=== PATIENT | male | born 1990 | race Caucasian/White ===

== ENCOUNTER → 2019-09-23 07:56 | Outpatient (CLI) | payer BC, SELFPAY ==
--- NOTE | 2019-09-23 | CA_ITS ---
APPROVED REPORT Exam: Exercise Treadmill Technologist: Aminah Meyer Ht: 6 ft 1 in Wt: 220 lbs BSA: 2.24 m2 HR: 90 bpm BP: 118/76 mmHg Indications: Chest pain, Shortness of Breath Stress Test Details Test: Allen HR Resting HR: 88 bpm Max Heart Rate (APMHR): 190 bpm Max HR Achieved: 191 bpm Target HR (85% APMHR): 161 bpm % of APMHR: 100 Recovery HR: 109 bpm BP Resting BP: 118.0/76.0 mmHg Max BP: 164.0/89.0 mmHg Recovery BP: 148.0/87.0 mmHg ECG Clinical Exercise duration: 10:17 min Highest Stage Achieved: Exercise capacity: 12.8 METs Stress ECG Conclusion Resting ECG: Sinus rhythm Allen protocol completed. Patient exercised 10:17. Test stopped due to leg fatigue. Symptoms: Leg fatigue at peak exercise. No chest pain or shortness of breath. Arrhythmias/Ectopy: Occasional PVC ST-T Changes: Less than 1.[address] segment depression Conclusion: GXT only. Good exercise capacity. Appropriate blood pressure response. Normal treadmill stress test Test Summary REST . . . . . . . Sitting REST . . . . . . . Standing REST 08:04 0.0 0.0 88 . 118/ 76 . . Stage 1 01:00 10.0 1.7 117 . . . . Stage 1 02:00 10.0 1.7 122 . . . . Stage 1 03:00 10.0 1.7 122 . 124/ 78 . . Stage 2 01:00 12.0 2.5 135 . . . . Stage 2 02:00 12.0 2.5 140 . . . . Stage 2 03:00 12.0 2.5 142 . 134/ 80 . . Stage 3 01:00 14.0 3.4 163 . . . . Stage 3 02:00 14.0 3.4 174 . . . . Stage 3 03:00 14.0 3.4 180 . 146/ 80 . . Stage 4 01:00 16.0 4.2 190 . . . . Stage 4 01:17 16.0 4.2 190 . . . Stop exercise at 10:17 RECOVERY 01:00 0.0 0.0 161 . 156/ 78 . . RECOVERY 02:00 0.0 0.0 125 . 156/ 78 . . RECOVERY 03:00 0.0 0.0 118 . 164/ 89 . . RECOVERY 04:00 0.0 0.0 110 . 164/ 89 . . RECOVERY 05:00 0.0 0.0 106 . 148/ 87 . . RECOVERY 05:16 0.0 0.0 106 . 148/ 87 . . Electronically signed by : Edgardo Neves, 09/24/2019 09:58:21
--- NOTE | 2019-09-23 08:03 | CA_ITS ---
APPROVED REPORT EXAM: Comprehensive 2D, Doppler, and color-flow Echocardiogram Car Mechanic Helper: Lyndsay Leija RDCS Ht: 6 ft 1 in Wt: 216lbs BSA: 2.22 BP: 132/83 mmHg Indications: Chest Pain, Shortness of Breath 2D Dimensions LVOT 1.93 cm (M/F) 1.5-2.5 M-Mode Dimensions RVDd 2.61 cm (0.9-2.6) LVDd 5.30 cm (3.5-5.7) LVDs 4.30 cm (3.5-5.7) IVSd 0.76 cm (0.6-1.1) PWd 0.79 cm (0.6-1.1) EF (Teich) 38.60% FS 18.90% EDV (Teich) 135.30 mL ESV (Teich) 83.10 mL LV Diastology E/A Ratio 1.17 Mitral Valve MV A Velocity 57.00 (40-130 cm/s) Left Ventricle Left atrium is normal size, left ventricle is normal size, there is no concentric left ventricular hypertrophy, visually estimated ejection fraction 55% with no regional wall motion abnormality. Diastolic parameters are within normal range. Right Ventricle Right atrium right ventricular normal size and contractility. Aortic Valve Aortic valve is grossly normal, there is no aortic stenosis aortic insufficiency. Mitral Valve Mitral valve is grossly normal, there is no mitral stenosis, there is trace mitral regurgitation. Tricuspid Valve Tricuspid valve is grossly normal, there is trace tricuspid regurgitation. Pulmonic Valve Pulmonic valve is grossly normal. Great Vessels Aortic root is normal size. Pericardium No significant pericardial effusion noted. Conclusion 1. Normal left ventricular size, preserved left ventricular systolic function, visually estimated ejection fraction 55% with no regional wall motion abnormality. Diastolic parameters are within normal range. 2. Trace mitral and tricuspid regurgitation 3. No significant pericardial effusion noted. Electronically signed by : Edgardo Neves, 09/24/2019 13:13:00
== END ==
PROVIDERS: PCP Internal Medicine Adolescent Medicine; Visit Provider Nurse Practitioner Family
DX: R07.9 Chest pain, unspecified (principal); R06.02 Shortness of breath; R00.2 Palpitations
CPT/HCPCS: 93017; 93306

== ENCOUNTER → 2019-10-06 12:27 | Outpatient (CLI) | payer BC, SELFPAY ==
[2019-10-06 13:26] LABS: Basophils % 0.5 % (0.1-2.0); Eosinophils # 0.2 K/mm3 (0.0-0.4); Eosinophils % 2.7 % (0.1-12.0); Hematocrit 48.9 % (42.0-52.0); Hemoglobin 16.1 g/dL (14.1-18.0); Lymphocytes # 1.9 K/mm3 (0.7-4.5); Lymphocytes % 28.6 % (10-50); Mean Corpuscular HGB Conc 32.9 g/dL (31.8-35.4); Mean Corpuscular Hemoglobin 29.6 pg (27.0-31.2); Mean Corpuscular Volume 90.1 fl (80-94); Mean Platelet Volume 7.5 fl (7.4-10.4); Monocytes # 0.4 K/mm3 (0.1-1.0); Monocytes % 6.3 % (1.7-9.3); Neutrophils # 4.1 K/mm3 (1.8-7.8); Neutrophils % 61.9 % (37.0-80.0); Platelet Count 355 K/mm3 (142-424); Red Blood Count 5.43 M/mm3 (4.60-6.20); Red Cell Distribution Width 12.3 % (11.5-17.5); White Blood Count 6.6 K/mm3 (4.8-10.8)
[2019-10-06 14:34] LABS: Hemoglobin A1C 5.2 % (0.0-7.0)
[2019-10-06 14:35] LABS: Blood Urea Nitrogen 12 mg/dL (7-18); Calcium 9.3 mg/dL (8.5-10.1); Carbon Dioxide 28 mmol/L (21.0-32.0); Chloride 102 mmol/L (98-107); Creatinine,Serum 0.88 mg/dL (0.70-1.30); Estimated Glomerular Filt Rate 102 ml/min (>60); Free T4 (Free Thyroxine) 0.85 ng/dl (0.76-1.46); GFR (African American) 123 ML/MIN (>60); Glucose 94 mg/dL (74-106); Sodium 141 mmol/L (136-145)
== END ==
PROVIDERS: Visit Provider Nurse Practitioner Family
DX: I10 Essential (primary) hypertension (principal); R00.2 Palpitations
CPT/HCPCS: 36415; 80048; 83036; 84439; 84443; 85025

== ENCOUNTER → 2019-10-29 13:30 | Outpatient (CLI) | payer BC, SELFPAY | PROVIDERS: PCP Internal Medicine Adolescent Medicine; Visit Provider Nurse Practitioner Family | DX: G47.9 Sleep disorder, unspecified (principal); R06.83 Snoring; R00.2 Palpitations; R06.00 Dyspnea, unspecified | CPT/HCPCS: G0399 ==

== ENCOUNTER → 2019-11-11 11:36 | Outpatient (CLI) | payer BC, SELFPAY ==
[2019-11-11 12:03] LABS: Basophils # 0.1 K/mm3 (0-0.2); Basophils % 0.7 % (0.1-2.0); Eosinophils # 0.2 K/mm3 (0.0-0.4); Eosinophils % 3.5 % (0.1-12.0); Hematocrit 47.2 % (42.0-52.0); Hemoglobin 16.2 g/dL (14.1-18.0); Lymphocytes # 2.1 K/mm3 (0.7-4.5); Lymphocytes % 31.1 % (10-50); Mean Corpuscular HGB Conc 34.3 g/dL (31.8-35.4); Mean Corpuscular Volume 87.3 fl (80-94); Mean Platelet Volume 7.6 fl (7.4-10.4); Monocytes # 0.5 K/mm3 (0.1-1.0); Monocytes % 7.2 % (1.7-9.3); Neutrophils # 3.8 K/mm3 (1.8-7.8); Neutrophils % 57.5 % (37.0-80.0); Platelet Count 347 K/mm3 (142-424); Red Cell Distribution Width 12.1 % (11.5-17.5); White Blood Count 6.7 K/mm3 (4.8-10.8)
[2019-11-11 15:30] LABS: Alanine Aminotransferase 27 U/L (12-78); Albumin Level 4.2 gm/dL (3.4-5.0); Alkaline Phosphatase 62 U/L (46-116); Anion Gap 12.5 mEq/L (5-15); Aspartate Amino Transferase 10 U/L (15-37); Bilirubin,Direct 0.1 mg/dL (0.0-0.2); Bilirubin,Indirect 0.5 mg/dL (0.0-0.9); Bilirubin,Total 0.6 mg/dL (0.2-1.0); Blood Urea Nitrogen 12 mg/dL (7-18); Calcium 8.9 mg/dL (8.5-10.1); Carbon Dioxide 29 mmol/L (21.0-32.0); Chloride 103 mmol/L (98-107); Chol/HDL Ratio 4.6 (1-3.5); Cholesterol 165 mg/dL (140-200); Estimated Glomerular Filt Rate 114 ml/min (>60); GFR (African American) 137 ML/MIN (>60); Glucose 93 mg/dL (74-106); HDL Cholesterol 36 mg/dL (27-67); LDL Cholesterol 113 mg/dL (0-130); Potassium 4.5 mmoL/L (3.5-5.1); Sodium 140 mmol/L (136-145); Total Protein,Serum 7.1 gm/dL (6.4-8.2); Triglycerides 78 mg/dL (30-200); VLDL Cholesterol 16 mg/dL (0-40)
== END ==
PROVIDERS: Visit Provider Nurse Practitioner Family
DX: I10 Essential (primary) hypertension (principal); R00.2 Palpitations; R06.02 Shortness of breath; G47.9 Sleep disorder, unspecified; R06.83 Snoring
CPT/HCPCS: 36415; 80048; 80061; 80076; 85025

== ENCOUNTER → 2020-05-13 17:31 | Outpatient (CLI) | payer BC, SELFPAY ==
[2020-05-13 18:17] LABS: Coronavirus 19 IgG Antibody Negative (Negative); Coronavirus 19 IgM Antibody Negative (Negative)
== END ==
PROVIDERS: Visit Provider Urology
DX: Z01.818 Encounter for other preprocedural examination (principal)
CPT/HCPCS: 36415; 86328

== ENCOUNTER 2020-05-16 09:10 | Day surgery (SDC) | payer BC, SELFPAY ==
[2020-05-12 17:05] VITALS: BMI 28.3
[2020-05-16 09:45] VITALS: BP 144/81; PULSE 77; RESP 18; TEMP 36.6; O2SAT 97
--- NOTE | 2020-05-16 10:58 | HMH.ANESCL ---
[facility] Anesthesia Checklist - Patient Identification Patient Identification: Arm Band, Verbal (Name & ) - Structural Data Admitted From: Home Planned Operative Procedure/s: vasectomy Consent for Planned Operative Procedure(s) Verified: Yes Verified Documents: History and Physical - NPO Status Verified Time NPO: 00:00 - Chart Verification Results Verified: CBC, BMP - Additional verifications Patient : No Anesthesia Reactions: No Hx Blood Transfusions: No Blood Transfusion Reaction: No Cephalosporin Allergy: No Previous Colonoscopy: No - Cardiovascular Assessment Heart Sounds: S1 & S2 Pulse Strength: Baseline Pulse Rhythm: Regular Peripheral Edema: No - Airway Assessment C-Spine Mobility Assessed: Yes TMJ Mobility Assessed: Yes Dentition: Good Dentition - Neurological Assessment Level of Consciousness: Awake, Alert, Appropriate Hx Seizures: No Numbness or tingling in extremities: No - Anesthesia Plan Anesthesia Risk discussed: Yes Anesthesia Plan: Verified ASA Class: II Anesthesia Type: General [facility] History I have reviewed the patient's past medical history: Yes Medical History: Reports:: Palpitations Denies:: Cancer, Diabetes Mellitus Type 1, Diabetes Mellitus Type 2, Internal Pacemaker, MRSA, Seizures *Have you ever received a pneumonia vaccine?: No *Have you received a flu vaccine this season?: Yes Other Medical History: Denies: Blood Transfusion Reaction Anesthesia experience/problems:: none Other Surgeries: Yes: No Previous Surgery. No: Pacemaker Amputation: No Fractures: No - *Social History Smoking Status: Never smoker Tobacco Type: smokeless tobacco Alcohol Intake: never Substance Use Type: denies use *Occupational Status:: employed Housing: house Household Members: spouse *Travel in the last 8 weeks: None Family Hx:: Coronary Artery Disease, Hypertension
[2020-05-16 11:48] VITALS: BP 116/69; PULSE 77; RESP 12; TEMP 36.4; O2SAT 95
[2020-05-16 11:58] VITALS: BP 118/70; PULSE 86; RESP 16; O2SAT 96
[2020-05-16 12:08] VITALS: PULSE 83; RESP 16; O2SAT 98
[2020-05-16 12:18] VITALS: BP 144/93; PULSE 85; RESP 16; TEMP 36.4; O2SAT 98
--- NOTE | 2020-05-16 12:26 | P.OP_ITS ---
Date of procedure: 05/16/20 Pre-op Diagnosis:: Sterilization Post-op Diagnosis:: Same Procedure performed:: Bilateral vasectomy Surgeon:: Oral Méndez MD DRAFTER SEISMOGRAPH:: Apolinar Chiu Anesthesia: MAC Estimated blood loss (mL): 5 Clinical Note:: 29-year-old white male seen in the office for vasectomy consultation presents for the procedure today. His is present. Operative findings:: Patient with normal-sized testicles no evidence of testicular nodules. Procedure went well without complication. Operative note:: Patient taken to the operating room after informed consent was obtained. Placed on the operating table in the supine position and monitored anesthesia care administered. Is prepped and draped in the standard surgical fashion. Testicular exam is within normal limits. Left vas was brought up to the midline raphae and local anesthetic placed in and around the vas. Scalpel was then used to make 1/2 inch incision in the skin and a tenaculum was used to grasp the vasa that was brought up through the incision. The basal sheath was then incised and the surrounding connective tissue was dissected away from the vas proper. Vas was then clipped once on the distal side and twice on the proximal side. A 1 cm segment was excised and the ends of the vas were cauterized. Hemostasis was achieved of the surrounding connective tissue and the vas was dropped back into the left hemiscrotum. The identical procedure was performed on the patient's right side. The vas was brought up through the same incision and local anesthetic instilled. The basal sheath incised and the vas clipped and a 1 cm segment excised and the vasa lumen cauterized. Hemostasis achieved and the vas placed back in the right hemiscrotum. A 3-0 chromic was placed in a horizontal mattress fashion and compression dressing and jockstrap was placed onto the scrotum. Patient taught procedure well without complication. Discharged to recovery room with routine instructions and medications. Condition: stable Disposition: same day Specimens:: vas segments were not sent Complications:: None
== END 2020-05-16 12:21 | disposition home or self-care (01) ==
LOC: OR 09:12
PROVIDERS: PCP Internal Medicine Adolescent Medicine; Visit Provider Urology
PROC: (CPT 55250; principal; 2020-05-16 10:45)
DX: Z30.2 Encounter for sterilization (principal); Z79.899 Other long term (current) drug therapy; F17.290 Nicotine dependence, other tobacco product, uncomplicated; Z82.49 Family history of ischemic heart disease and other diseases of the circulatory system
CPT/HCPCS: 55250; J2405

== ENCOUNTER → 2020-09-13 15:25 | Outpatient (CLI) | payer BC, SELFPAY ==
[2020-09-14 09:54] LABS: Adenovirus,PCR Not Detected (NotDetected); Bordetella Pertussis Not Detected (NotDetected); Chlamydophila Pneumoniae, PCR Not Detected (NotDetected); Coronavirus 19, PCR Not Detected (NotDetected); Coronavirus 229E Not Detected (NotDetected); Coronavirus NL63 Not Detected (NotDetected); Coronavirus OC43 Not Detected (NotDetected); Coronovirus HKU1,PCR Not Detected (NotDetected); Human Metapneumovirus Not Detected (NotDetected); Influenza A, PCR Not Detected (NotDetected); Influenza AH1, 2009 Not Detected (NotDetected); Influenza AH1, PCR Not Detected (NotDetected); Influenza AH3,PCR Not Detected (NotDetected); Influenza B, PCR Not Detected (NotDetected); Mycoplasma Pneumoniae, PCR Not Detected (NotDetected); Parainfluenza 1, PCR Not Detected (NotDetected); Parainfluenza 2, PCR Not Detected (NotDetected); Parainfluenza 3, PCR Not Detected (NotDetected); Parainfluenza 4, PCR Not Detected (NotDetected); Respiratory Syncytial Virus Not Detected (NotDetected)
[2020-09-14 11:15] LABS: Rhinovirus/Enterovirus Detected (NotDetected)
== END ==
PROVIDERS: PCP Internal Medicine Adolescent Medicine; Visit Provider Nurse Practitioner Family
DX: Z03.818 Encounter for observation for suspected exposure to other biological agents ruled out (principal); B34.1 Enterovirus infection, unspecified
CPT/HCPCS: 87581; 87633; 87798; U0003; U0004

== ENCOUNTER 2022-05-11 13:44 | Emergency (ER) | payer BC, SELFPAY ==
[2022-05-11 14:00] VITALS: BP 125/74; PULSE 108; RESP 18; TEMP 36.7; O2SAT 98; BMI 26.9
--- NOTE | 2022-05-11 14:26 | HMH.EDUTC ---
[facility] [place] Disposition Clinical Impression: Viral syndrome Disposition: Home, Self-Care Condition on Discharge: Good Instructions: DI for COVID-19 (Suspected or Confirmed ), Preventing the Spread of Coronavirus Discharge Instructions Additional Instructions: *Monitor Temp, Over the counter Motrin or Tylenol as directed/as needed Tylenol every 4 hours and Motrin every 6 hours (as long as your family doctor has told you that you can take it) for fever or pain. and straight to ER if unable to lower temp less than 101.0 after medication given *Warm salt water gargles may help to soothe the throat *Throat Lozenges *Warm fluids like tea with honey may help to soothe the throat *Sleep elevated *Humidifier/Vaporizer Follow up IMMEDIATELY for new or worsening symptoms or no Noticeable improvement over the next 48-72 hours. 911 for difficulty breathing or swallowing You were tested for today for COVID19 your test result should be back in the next 24-48 hours, you may check your results on the [facility] My Health Portal Make sure to take your Vitamins Vit. C Vit D and Zinc if you can take them Referrals: Apolinar Dodge MD [Primary Care Provider] - As needed Forms: Work/School Release Time of Disposition: 14:29 Medical Decision Making - Walt Inquiry Pt receiving controlled substance: No Walt was queried for this patient: No Vital Signs: 05/11/22 14:00 Temperature 98.1 F Temperature Source Oral Pulse Rate [Right Brachial] 108 H Respiratory Rate 18 Blood Pressure [Right Arm] 125/74 Blood Pressure Mean [Right Arm] 91 Blood Pressure Source [Right Arm] Automatic Cuff Blood Pressure Position [Right Arm] Sitting 02 Sat by Pulse Oximetry 98 Oxygen Delivery Method Room Air Orders (Tests/Meds): ORDERS Category Date Time Status Covid-19 Nasal PCR ([facility]) Routine Lab 05/11/22 13:[address] [facility] [place] HPI - General Stated complaint: covid test Time Seen by Provider: 05/11/22 14:26 Mode of Arrival: Ambulatory Source of Information: Patient Limitations: No Limitations Description of Symptoms (Recalled from Triage Doc. by RN): PATIENT C/O COUGH, SOA, SORE THROAT, SINUS DRAINAGE, FEVER AND FATIGUE SINCE SATURDAY. HE REPORTS HAVING A POSITIVE AT HOME COVID TEST HEENT Symptoms (Recalled from RN notes): Yes Resp Symptoms (Recalled from RN notes): Yes Skin Symptoms (Recalled from RN notes): No MS Symptoms (Recalled from RN notes): No Functional Status (Recalled from RN notes): WNL - History of Present Illness Provider Complaint: Patient states that he has been having fever, chills, bodyaches, fatigue, cough and states that he gets tired more easy with walking States that he took an at home COVID test and it was positive and work required him to come in and get an official test - Related Data Previous Rx's Medication Instructions Recorded metoprolol succinate 25 mg 25 mg PO DAILY #90 tab 07/19/21 tablet,extended release 24 hr Allergies Allergy/AdvReac Type Severity Reaction Status Date / Time No Known Allergies Allergy Verified 07/19/21 08:53 - Worker's Comp Is this a Worker's Comp case?: No [facility] History - Hepatitis A Screen Attestation statement:: This patient has been screened for Hepatitis A risk factors. I have reviewed the patient's past medical history: Yes Medical History: Reports:: Palpitations Denies:: Cancer, Diabetes Mellitus Type 1, Diabetes Mellitus Type 2, Internal Pacemaker, MRSA, Seizures Other Medical History: Denies: Blood Transfusion Reaction Other Surgeries: Yes: No Previous Surgery. No: Pacemaker Amputation: No Fractures: No Comment: darlene in left leg - Social History Smoking Status: Never smoker Tobacco Type: smokeless tobacco Alcohol Intake: never Substance Use Type: denies use Occupational Status: employed Housing: house Household Members: spouse Family Hx:: Coronary Artery Disease, Hypertension Comment: Paternal Grandfather-CAD,AICD. Paternal Grandmother-CAD. Materna
[2022-05-11 14:35] VITALS: BP 125/74; PULSE 108; RESP 18; TEMP 36.7; O2SAT 98
== END 2022-05-11 14:38 | disposition home or self-care (01) ==
PROVIDERS: Emergency Provider Nurse Practitioner; PCP Internal Medicine Adolescent Medicine
DX: U07.1 COVID-19 (principal); J02.9 Acute pharyngitis, unspecified; R06.02 Shortness of breath; R00.2 Palpitations; R94.31 Abnormal electrocardiogram [ECG] [EKG]; M79.10 Myalgia, unspecified site
CPT/HCPCS: 99213; C9803; G0463; U0003; U0005

== ENCOUNTER → 2022-06-19 10:56 | Outpatient (CLI) | payer BC, SELFPAY ==
--- NOTE | 2022-06-19 11:00 | US_ITS ---
FINAL REPORT TECHNIQUE: Ultrasound images of the testicles were obtained bilaterally. Color Doppler images were obtained. CLINICAL HISTORY: LEFT TESTICULAT PAIN, TESTICULAR SWELLING,LEFT FINDINGS: The right testicle measures 4.0 x 3.2 x 2.4 cm. The left testicle measures 4.1 x 3.4 x 2.3 cm. Arterial flow is identified bilaterally. No intratesticular masses are identified. There are small hydroceles bilaterally. IMPRESSION: No evidence of testicular torsion or mass. Reviewed, Interpreted and Dictated by Merrill Goldman III, MD Transcribed by Letitia Huang Authenticated and [facility]
== END ==
LOC: RAD 10:58
PROVIDERS: PCP Internal Medicine Adolescent Medicine; Visit Provider Nurse Practitioner Family
DX: N50.812 Left testicular pain (principal); N50.89 Other specified disorders of the male genital organs
CPT/HCPCS: 76870

== ENCOUNTER 2022-10-10 08:05 | Emergency (ER) | payer BC, SELFPAY ==
[2022-10-10 08:35] LABS: Coronavirus 19, PCR Not Detected (NotDetected); Influenza A, PCR Not Detected (NotDetected); Influenza B, PCR Not Detected (NotDetected)
[2022-10-10 08:37] LABS: UTC Strep Screen (Rapid) Positive (Negative)
[2022-10-10 08:49] VITALS: BP 120/77; PULSE 106; RESP 17; TEMP 37.8; O2SAT 96; BMI 32.1
--- NOTE | 2022-10-10 08:57 | EXP.UTC ---
Discharge Plan Disposition Patient Disposition: Home, Self-Care Condition: Good Prescriptions Prescriptions: New amoxicillin 875 mg tablet 875 mg PO Q12H Qty: 20 0RF No Action metoprolol succinate 25 mg tablet extended release 24 hr 25 mg PO DAILY Qty: 90 3RF Referrals Follow up/Referrals: Apolinar Dodge MD [Primary Care Provider] - See instructions Activity Restrictions/Add. Instructions Additional Instructions/Restrictions: *Monitor Temp, Over the counter Motrin or Tylenol as directed/as needed Tylenol every 4 hours and Motrin every 6 hours (as long as your family doctor has told you that you can take it) for fever or pain. and straight to ER if unable to lower temp less than 101.0 after medication given *Warm salt water gargles may help to soothe the throat *Throat Lozenges? *Warm fluids like tea with honey may help to soothe the throat? *Sleep elevated *Humidifier/Vaporizer *If you did not take Penicillin shot or was unable to, start taking antibiotic immediately and make sure that you take it for the FULL length of time although you should start to feel better in 24-48 hours *change toothbrush and toothpaste 24-48 hours after starting to take antibiotics so you do not reinfect yourself Monitor Temp. Tylenol and/or Ibuprofen as needed. ER if fever is no less than 101 despite alternating Tylenol and Ibuprofen * Encourage fluids, water, Gatorade, powerade, pedialyte if /toddler/or child *Cold fluids, popsicles and ice cream may feel good on his throat Follow up IMMEDIATELY for new or worsening symptoms or no Noticeable improvement over the next 48-72 hours. 911 for difficulty breathing or swallowing You were tested for today for Flu with COVID19 your test result should be back in the next 24-48 hours, you may check your results on the [facility] Portal Clinical Impressions Clinical Impression: Strep throat Stand Alone Forms Stand Alone Forms: Work/School Release Instructions Patient Instructions: DI for Strep Throat, Strep Throat Discharge ED Provider: Varsha Lindsey [facility] [place] General Stated complaint: sore throat, GARCIA, ear pain, fever Mode of Arrival: Ambulatory Source of Information: Patient Limitations: No Limitations Time Seen by Provider: 10/10/22 08:57 Description of Symptoms (Recalled from Triage Doc. by RN): FEVER, SORE THORAT, BILATERAL EAR PAIN AND BODY ACHES HEENT Symptoms (Recalled from RN notes): Yes Resp Symptoms (Recalled from RN notes): No Skin Symptoms (Recalled from RN notes): No MS Symptoms (Recalled from RN notes): No Functional Status (Recalled from RN notes): WNL History of Present Illness Provider Complaint: Patient state that Saturday he woke up with sore throat and pain in his ears States that yesterday he started with fever, chills, body aches, and over all not feeling well States that today he was feeling worse so he came in Related Data Previous Rx's Medication Instructions Recorded metoprolol succinate 25 mg 25 mg PO DAILY blood pressure #90 09/04/22 tablet,extended release 24 hr tabs amoxicillin 875 mg tablet 875 mg PO Q12H #20 tabs 10/10/22 Allergies Allergy/AdvReac Type Severity Reaction Status Date / Time No Known Allergies Allergy Verified 09/12/22 07:56 Worker's Comp Is this a Worker's Comp case?: No [facility] Disclaimer: The information contained in this section may have been updated after the patient was seen, as this information can be updated by other users. Medical History Abnormal electrocardiography Social History Smoking Status: Never smoker alcohol intake: never substance use type: denies use current occupational status: employed Travel in the last 8 weeks: Inside the [place] household members: spouse housing: house current occupational exposures/hazards: No caffeine: No
[2022-10-10 09:10] VITALS: BP 120/77; PULSE 106; RESP 17; TEMP 37.8; O2SAT 96
== END 2022-10-10 09:10 | disposition home or self-care (01) ==
LOC: ER 08:07 → UTC 08:08
PROVIDERS: Emergency Provider Nurse Practitioner; PCP Internal Medicine Adolescent Medicine
DX: J02.0 Streptococcal pharyngitis (principal)
CPT/HCPCS: 99212; 87880; C9803; U0003; U0005

== ENCOUNTER → 2023-02-05 10:48 | Outpatient (CLI) | payer BC, SELFPAY ==
--- NOTE | 2023-02-05 10:55 | XR_ITS ---
FINAL REPORT CLINICAL HISTORY: Broken rib, right rib cage FINDINGS: 3 views of the right ribs were obtained. There are no rib fractures. There is no pleural fluid collection or pneumothorax. A single view of the chest demonstrates no acute cardiopulmonary process. IMPRESSION: Unremarkable right rib series. Reviewed, Interpreted and Dictated by Umer Gutierrez MD Transcribed by Demetrius White Authenticated and [facility]
== END ==
LOC: RAD 10:48
PROVIDERS: PCP Internal Medicine Adolescent Medicine; Visit Provider Specialist
DX: R07.81 Pleurodynia (principal)
CPT/HCPCS: 71101

== ENCOUNTER 2023-05-19 22:39 | Emergency (ER) | payer BC, SELFPAY ==
--- NOTE | 2023-05-19 22:40 | ECG_ITS ---
APPROVED REPORT Exam: Resting ECG HR:121 bpm ECG Measurements Heart Rate 121 AXES CO 147 P 31 QRSd 104 QRS 24 QT 316 T 11 QTc 388 Conclusion SINUS TACHYCARDIA WITH FREQUENT VENTRICULAR PREMATURE COMPLEXES NONSPECIFIC T-WAVE ABNORMALITY ABNORMAL RHYTHM ECG UNCONFIRMED REPORT Electronically signed by : Apolinar Dodge MD 05/20/2023 07:09:16
[2023-05-19 22:41] VITALS: BP 147/109; PULSE 126; RESP 16; TEMP 36.4; O2SAT 98; BMI 26.3
[2023-05-19 23:00] VITALS: BP 137/87; PULSE 123; RESP 18; O2SAT 100
--- NOTE | 2023-05-19 23:03 | XR_ITS ---
PROCEDURE INFORMATION: Exam: XR Chest Exam date and time: 05/19/23 11:23 PM Age: 32 years old Clinical indication: Other: Palpitations TECHNIQUE: Imaging protocol: Radiologic exam of the chest. Views: 1 view. COMPARISON: CR XR RIBS RT MIN 3V W CXR1V 02/05/23 10:58 AM FINDINGS: Lungs: Unremarkable. No consolidation. Pleural spaces: Unremarkable. No pleural effusion. No pneumothorax. Heart/Mediastinum: Unremarkable. No cardiomegaly. Bones/joints: Unremarkable. IMPRESSION: No acute findings.
--- NOTE | 2023-05-19 23:10 | PC.NURSE ---
Pt is complaining of IV site hurting. Charge nurse at bedside to assess site and start a new one.
[2023-05-19 23:15] LABS: Basophils % 0.5 % (0.1-2.0); Eosinophils # 0.2 K/mm3 (0.0-0.4); Eosinophils % 2.2 % (0.1-12.0); Hematocrit 49.4 % (42.0-52.0); Hemoglobin 16.2 g/dL (14.1-18.0); Lymphocytes # 2.9 K/mm3 (0.7-4.5); Lymphocytes % 32.5 % (10-50); Mean Corpuscular HGB Conc 32.9 g/dL (31.8-35.4); Mean Corpuscular Volume 88.4 fl (80-94); Mean Platelet Volume 7.8 fl (7.4-10.4); Monocytes # 0.6 K/mm3 (0.1-1.0); Monocytes % 6.8 % (1.7-9.3); Neutrophils # 5.1 K/mm3 (1.8-7.8); Platelet Count 345 K/mm3 (142-424); Red Blood Count 5.59 M/mm3 (4.60-6.20); Red Cell Distribution Width 12.5 % (11.5-17.5); White Blood Count 8.8 K/mm3 (4.8-10.8)
[2023-05-19 23:17] LABS: Alanine Aminotransferase 28 U/L (12-78); Albumin Level 5.4 g/dl (3.5-5.0); Albumin/Globulin Ratio 1.7 (1.1-1.8); Alkaline Phosphatase 54 U/L (38-126); Anion Gap 15.6 mEq/L (5-15); Aspartate Amino Transferase 35 U/L (17-59); Bilirubin,Total 0.5 mg/dl (0.2-1.3); Blood Urea Nitrogen 15 mg/dl (9-20); Calcium 9.7 mg/dl (8.4-10.2); Carbon Dioxide 28 mmol/L (22.0-30.0); Chloride 103 mmol/L (98-107); Creatinine Clearance Estimated 152 mL/min (50-200); Estimated Glomerular Filt Rate 97 ml/min (>60); GFR (African American) 117 ML/MIN (>60); Globulin 3.2 g/dL (1.3-3.2); Glucose 132 mg/dl (74-100); Potassium 3.6 mmoL/L (3.5-5.1); Sodium 143 mmol/L (136-145); Total Protein,Serum 8.6 g/dl (6.3-8.2)
[2023-05-19 23:18] VITALS: BP 137/85; PULSE 109; RESP 18; O2SAT 100
[2023-05-19 23:30] VITALS: BP 132/74; PULSE 84; RESP 18; O2SAT 98
[2023-05-19 23:30] LABS: Troponin I < 0.01 ng/ml (0.00-0.034)
--- NOTE | 2023-05-19 23:43 | HMH.EDCP ---
Discharge Plan Disposition Patient Disposition: Home, Self-Care Condition: Good Prescriptions Prescriptions: New hydroxyzine HCl 25 mg tablet 25 mg PO Q8H PRN (Reason: anxiety) Qty: 20 0RF No Action metoprolol succinate 25 mg tablet extended release 24 hr 25 mg PO DAILY Qty: 90 3RF Referrals Follow up/Referrals: Apolinar Dodge MD [Primary Care Provider] - See instructions Activity Restrictions/Add. Instructions Additional Instructions/Restrictions: You were evaluated in the emergency department today. Please follow-up with your primary care provider. nurses superintendent your prescription for hydroxyzine and take as needed for anxiety. Return to the emergency department for any new or worsening symptoms. Clinical Impressions Clinical Impression: Anxiety, Heart palpitations Instructions Patient Instructions: DI for Anxiety -- Adult, DI for Arrhythmias Discharge ED Provider: Kamilah Brewer Chest Pain HPI General Chief Complaint: Arrhythmia/Palpitations Stated Complaint: chest pain Time Seen by Provider: 05/19/23 22:59 Mode of Arrival: Family Vehicle Source of Information: Patient Limitations: No Limitations Description of Symptoms (Recalled from ER Triage Doc. by RN): 32 yo presents with left anterior chest wall discomfort, heart palpitations. denies n/v/d. difficulty taking a deep breath ; afebrile. denies cough. no radiation. PMH: hypertension and irregular heart rate states palpitations is making him feel dizzy History of Present Illness HPI narrative: This patient is a 32-year-old male with a history of hypertension, palpitations, obstructive sleep apnea, and sinus tachycardia presented to the emergency department for evaluation with concern for palpitations, lightheadedness, feelings of burning all over, and high blood pressure readings at home. Blood pressure readings at home in the 130s to 140s systolic. He states that he has had a lot of recent stress and anxiety, and he thinks that his symptoms may be related to this, however he wanted to make sure there is nothing going on with his heart given his persistent palpitations. He also notes that he has been having a lot of nightmares, and he is worried that this may mean that his CPAP is not functioning properly, as he does not typically have nightmares if he uses a CPAP. No other concerns noted, such as fevers, chills, abdominal pain, nausea, bloating, changes in bowel movements, or other issues. He reports compliance with his home metoprolol. Related Data Previous Rx's Medication Instructions Recorded metoprolol succinate 25 mg 25 mg PO DAILY blood pressure #90 09/04/22 tablet,extended release 24 hr tabs hydroxyzine HCl 25 mg tablet 25 mg PO Q8H PRN anxiety #20 tabs 05/20/23 Allergies Allergy/AdvReac Type Severity Reaction Status Date / Time No Known Allergies Allergy Verified 02/05/23 10:13 [facility] Disclaimer: The information contained in this section may have been updated after the patient was seen, as this information can be updated by other users. Medical History Abnormal electrocardiography Social History Smoking Status: Unknown if ever smoked alcohol intake: never substance use type: denies use current occupational status: employed Travel in the last 8 weeks: Inside the [place] household members: spouse housing: house current occupational exposures/hazards: No caffeine: No ROS Obtained: Yes All systems reviewed & no additional complaints except as documented 14 point review of systems obtained and negative except as mentioned in HPI. Physical Exam General General appearance: alert and anxious Comment: Very anxious appearing with pressured speech Head Head exam: atraumatic and normocephalic Eye Eye exam: Present normal appearance, PERRL and EOMI ENT ENT exam: Present normal exam and norm
--- NOTE | 2023-05-19 23:56 | PC.NURSE ---
Rounded on pt. No needs voiced at this time.
[2023-05-20] VITALS: BP 125/73; PULSE 96; RESP 16; O2SAT 95
[2023-05-20 00:08] LABS: D-Dimer 0.61 ug/mL (0.0-0.5)
--- NOTE | 2023-05-20 00:19 | PC.NURSE ---
Dr. Brewer at [facility]
[2023-05-20 00:30] VITALS: BP 126/78; PULSE 88; RESP 13; O2SAT 94
--- NOTE | 2023-05-20 00:37 | PC.NURSE ---
Pt urinal emptied. No other needs voiced. Call light within reach.
[2023-05-20 01:00] VITALS: BP 115/67; PULSE 80; RESP 17; O2SAT 94
[2023-05-20 01:30] VITALS: BP 107/63; PULSE 67; RESP 15; O2SAT 96
[2023-05-20 01:44] LABS: Troponin I < 0.01 ng/ml (0.00-0.034)
[2023-05-20 02:00] VITALS: BP 104/64; PULSE 86; RESP 18; O2SAT 97
[2023-05-20 02:20] VITALS: BP 104/64; PULSE 76; RESP 16; TEMP 36.6; O2SAT 96
== END 2023-05-20 02:24 | disposition home or self-care (01) ==
PROVIDERS: Emergency Provider Emergency Medicine; PCP Internal Medicine Adolescent Medicine
DX: R07.9 Chest pain, unspecified (principal); R00.0 Tachycardia, unspecified; I10 Essential (primary) hypertension; I49.3 Ventricular premature depolarization; G47.33 Obstructive sleep apnea (adult) (pediatric)
CPT/HCPCS: 71045; 80053; 84484; 85025; 85378; 93005; 96360; 99285

== ENCOUNTER 2023-12-08 18:13 | Emergency (ER) | payer BC, SELFPAY ==
[2023-12-08 18:20] VITALS: BP 138/82; PULSE 91; RESP 19; TEMP 36.8; O2SAT 98; BMI 26.3
[2023-12-08 18:27] LABS: Apearance,Urine Clear (Clear); Color,Urine Dark Yellow (Yellow)
[2023-12-08 18:28] LABS: Bilirubin,Urine Negative (Negative); Blood, Urine Negative (Negative); Glucose,Urine (UA) Negative (Negative); Ketones,Urine Negative (Negative); Protein,Urine Negative (Negative); Specific Gravity, Urine 1.025 (1.005-1.030); UTC Leukocyte Esterase,Urine Negative (Negative); UTC Nitrate,Urine Positive (Negative); Urobilinogen,Urine 0.2 EU/dl (0.2)
--- NOTE | 2023-12-08 18:43 | EXP.UTC ---
Discharge Plan Disposition Patient Disposition: Home, Self-Care Condition: Good Prescriptions Prescriptions: New ciprofloxacin HCl [Cipro] 500 mg tablet 500 mg PO Q12H Qty: 20 0RF phenazopyridine [Pyridium] 200 mg tablet 200 mg PO Q8H 2 Days Qty: 6 0RF No Action metoprolol succinate 25 mg tablet extended release 24 hr 25 mg PO DAILY Rx Instructions: Take 1 tablet by mouth once daily for blood pressure Referrals Follow up/Referrals: Apolinar Dodge MD [Primary Care Provider] - See instructions Activity Restrictions/Add. Instructions Additional Instructions/Restrictions: *Increase fluids. Water not Soda or Tea *Start antibiotic immediately and be sure to take as ordered for the FULL length of time although you should start to see improvement over the next 48 hours *Pyridium as needed Remember this medication will turn your urine . This is normal but it will stain what ever it gets on *You should not use Pyridium for more than 48 hours. If so , follow up with your primary physician to review urine culture and ensure that antibiotic is adequate for infection *Be SURE to follow up anytime for new or worsening symptoms with your family doctor. AND in 48 hours for urine culture results with your family doctor, if you do not have a doctor then you may call back to the [facility] for urine culture results and further treatment. We do recommend that you choose and establish care with a Primary Care Physician. ?AND follow up with them ?in 10-14 days to repeat UA to ensure infection is resolved and blood no longer present *Be sure to let your PCP know that we sent urine cultures from the [facility] so they can follow up to ensure that you area the on the correct antibiotic Call your doctor office and make appointment for 48 hours (2 days from today) ?to follow up and get the results of your urine culture and further treatment Clinical Impressions Clinical Impression: UTI (urinary tract infection) Qualifiers: Urinary tract infection type: site unspecified Hematuria presence: without hematuria Qualified Code(s): N39.0 - Urinary tract infection, site not specified Instructions Patient Instructions: DI for Urinary Tract Infection (UTI), Urinary Tract Infection Discharge ED Provider: Varsha Lindsey [facility] – [place], [place] HPI General Stated complaint: pain in back and painful urination Mode of Arrival: Ambulatory Source of Information: Patient Limitations: No Limitations Time Seen by Provider: 12/08/23 18:43 Description of Symptoms (Recalled from Triage Doc. by RN): PATIENT C/O FREQUENT URINATION AND LOWER BACK PAIN X 2 DAYS HEENT Symptoms (Recalled from RN notes): No Resp Symptoms (Recalled from RN notes): No Skin Symptoms (Recalled from RN notes): No MS Symptoms (Recalled from RN notes): No Functional Status (Recalled from RN notes): WNL History of Present Illness Provider Complaint: Patient states that for the last couple of days he has been having achy like pain in his lower back and having burning with urination and frequent urination States that he was worried that he may have a UTI so he came in to get checked Denies fever or abdominal pain Related Data Home Medications Medication Instructions Recorded Confirmed metoprolol succinate 25 mg 25 mg PO DAILY 12/08/23 12/08/23 tablet,extended release 24 hr Previous Rx's Medication Instructions Recorded ciprofloxacin HCl 500 mg tablet 500 mg PO Q12H #20 tabs 12/08/23 (Cipro) phenazopyridine 200 mg tablet 200 mg PO Q8H pain 2 days #6 tabs 12/08/23 (Pyridium) Allergies Allergy/AdvReac Type Severity Reaction Status Date / Time No Known Allergies Allergy Verified 02/05/23 10:13 Worker's Comp Is this a Worker's Comp case?: No [facility] Disclaimer: The information contained in this section may have been updated after the patient was seen, as this information can be updated by other users. Medical History Abnormal electrocardiography Social History Smoking Status: Unknown if ever smoked alcohol intake: never substance use type: denies use current occupational status: employed Travel in the last 8 weeks: Inside the [place] household members: spouse housing: house current occupational exposures/hazards: No caffeine: No ROS Obtained: Yes All systems reviewed & no additional complaints except as documented and Yes Systems reviewed as appropriate & no additional complaints except as documented Constitutional Constitutional: Reports system reviewed and no additional complaints, except as documented and Reports as per HPI ENT Ears, Nose, Mouth, and Throat: Reports system reviewed and no additional complaints, except as documented and Reports as per HPI Cardiovascular Cardiovascular: Reports system reviewed and no additional complaints, except as documented and Reports as per HPI Respiratory Respiratory: Reports system reviewed and no additional complaints, except as documented and Reports as per HPI Gastrointestinal Gastrointestingal: Reports system reviewed and no additional complaints, except as documented and as per HPI; Denies abdominal pain Genitourinary Male Genitourinary: Reports system reviewed and no additional complaints, except as documented, Reports as per HPI, Reports flank pain, Reports urinary frequency and Reports urinary urgency Comments: denies hx of Kidney stone Musculoskeletal Musculoskeletal: Reports system reviewed and no additional complaints, except as documented and Denies as per HPI Integumentary/Breasts Skin/Breast: Reports system reviewed and no additional complaints, except as documented and Reports as per HPI Physical Exam General General appearance: alert and in no apparent distress ENT ENT exam: Present mucous membranes moist Respiratory Respiratory exam: Present normal lung sounds bilaterally; Absent respiratory distress or wheezes Cardiovascular Cardiovascular exam: Present regular rate, normal rhythm and normal heart sounds Abdominal Exam Abdominal exam: Present soft and normal bowel sounds; Absent distention or tenderness Neurological Exam Neurological exam: Present alert, oriented X3 and normal gait Medical Decision Making Walt Inquiry Pt receiving controlled substance: No Walt was queried for this patient: No Vital Signs: 12/08/23 18:20 Temperature 98.3 F Temperature Source Oral Pulse Rate [Left Brachial] 91 H Respiratory Rate 19 Blood Pressure [Left Arm] 138/82 Blood Pressure Mean [Left Arm] 100 Blood Pressure Source [Left Arm] Automatic Cuff Blood Pressure Position [Left Arm] Sitting 02 Sat by Pulse Oximetry 98 Oxygen Delivery Method Room Air Lab Data Lab results reviewed: Yes I reviewed the patient's lab results. Lab Results 12/08/23 18:22: Urine Color Dark yellow, Urine Appearance Clear, Urine pH 6.0, Ur Specific [place] 1.025, Urine Protein Negative, Urine Glucose (UA) Negative, Urine Ketones Negative, Urine Blood Negative, Urine Nitrate Positive A, Urine Bilirubin Negative, Urine Urobilinogen 0.2, Ur Leukocyte Esterase Negative Medical Decision Narrative: Medication discussed with pharmacy
[2023-12-08 19:10] VITALS: BP 138/82; PULSE 91; RESP 19; TEMP 36.8; O2SAT 98
[2023-12-08] MEDS: PHENAZOPYRIDINE 200MG TABLET 200 MG PO (19:14)
[2023-12-08] MEDS: levoFLOXacin 500MG TAB 500 MG PO (19:15)
== END 2023-12-08 19:16 | disposition home or self-care (01) ==
PROVIDERS: Emergency Provider Nurse Practitioner; PCP Internal Medicine Adolescent Medicine
DX: N39.0 Urinary tract infection, site not specified (principal); M54.59 Other low back pain
CPT/HCPCS: 81003; 87086; 99212; 99214; G0463

== ENCOUNTER 2024-05-21 03:41 | Emergency (ER) | payer BC, SELFPAY ==
[2024-05-21 03:43] VITALS: BP 141/95; PULSE 113; RESP 18; TEMP 36.5; O2SAT 99; BMI 26.4
--- NOTE | 2024-05-21 03:47 | ECG_ITS ---
APPROVED REPORT Exam: Resting ECG HR:112 bpm ECG Measurements Heart Rate 112 AXES VT 168 P 76 QRSd 100 QRS 66 QT 329 T 68 QTc 395 Conclusion SINUS TACHYCARDIA NONSPECIFIC T-WAVE ABNORMALITY ABNORMAL RHYTHM ECG Electronically signed by : ISABEL MORTENSEN, 05/21/2024 04:33:42
[2024-05-21 03:50] VITALS: BP 141/95; PULSE 112; O2SAT 100
--- NOTE | 2024-05-21 03:57 | PC.NURSE ---
Dr. Brewer at bedside
[2024-05-21 04:00] VITALS: BP 136/89; PULSE 98; RESP 12
--- NOTE | 2024-05-21 04:01 | XR_ITS ---
PROCEDURE INFORMATION: Exam: XR Chest Exam date and time: 05/21/2024 4:01 AM Age: 33 years old Clinical indication: Pain; Chest pressure; Additional info: Palpitations, SOA TECHNIQUE: Imaging protocol: Radiologic exam of the chest. Views: 2 views. COMPARISON: CR XR CHEST PORTABLE 05/19/2023 11:23 PM FINDINGS: Lungs: Unremarkable. No consolidation. Pleural spaces: Unremarkable. No pleural effusion. No pneumothorax. Heart/Mediastinum: Unremarkable. No cardiomegaly. Bones/joints: Unremarkable. IMPRESSION: No acute findings.
--- NOTE | 2024-05-21 04:01 | HMH.EDGENADL ---
Discharge Plan Disposition Patient Disposition: Home, Self-Care Condition: Good Prescriptions Prescriptions: New hydroxyzine HCl 25 mg tablet 25 mg PO Q8H PRN (Reason: panic attack(s)) Qty: 12 0RF No Action doxycycline hyclate 100 mg capsule 100 mg PO BID Patient Comments: TAKE 1 CAPSULE BY MOUTH TWICE DAILY FOR 10 DAYS metoprolol succinate 25 mg tablet extended release 24 hr 25 mg PO DAILY Rx Instructions: Take 1 tablet by mouth once daily for blood pressure Referrals Follow up/Referrals: Apolinar Dodge MD [Primary Care Provider] - See instructions Activity Restrictions/Add. Instructions Additional Instructions/Restrictions: You were evaluated in the emergency department today. Please follow-up closely with your primary care provider to determine whether or not you should be restarted on your home medication, metoprolol. Follow-up closely with them over the next 48 hours. Return to the emergency department for new or worsening symptoms. Take hydroxyzine as needed for panic attacks. Clinical Impressions Clinical Impression: Heart palpitations, Anxiety, Sinus tachycardia Instructions Patient Instructions: Anxiety and Panic Attacks (Alternative Therapy), DI for Palpitations Discharge ED Provider: Kamilah Brewer General Adult HPI General Chief complaint: Anxiety Stated complaint: High heart Rate,feels bad Time Seen by Provider: 05/21/24 03:55 Mode of Arrival: Ambulatory Source of Information: Patient Limitations: No Limitations Description of Symptoms (Recalled from ER Triage Doc. by RN): Pt presents to ED via private vehicle for anxiety/heart palpatations. Pt states this has happened before. Pt states he was asleep and woke up to his heart racing . He states it's probably anxiety but he just couldn't get it together so he came in. Pt is A&O*4 and family is bedside. History of Present Illness HPI narrative: This patient is a 33-year-old male with a history of hypertension, PAVAN, and previous evaluations for palpitations/sinus tachycardia as well as anxiety presenting to the emergency department for evaluation with concern for anxiety and palpitations. Patient reports that he went to sleep in his usual state of health last night and was doing fine. He wore his CPAP, which is new, and he has not been having issues with it. He notes that he woke up to his heart racing. He states that he thought maybe it was just anxiety, but he cannot get his symptoms resolved. He states that he feels bad overall and feels like he is burning all over. On review of systems, he notes that he is injured his right ribs and states that he had some pleuritic chest pain on the right side as well as nausea. 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 He cannot identify any other recent other symptoms, such as fever, sore throat, cough, congestion, calf pain or swelling, abdominal pain, vomiting, or other concerns. Of note, he was previously on metoprolol reportedly had for high blood pressure, but once he got a new CPAP he stopped taking his medication 2 months ago, as it was thought that maybe his high blood pressure could be result of poor sleep. Related Data Home Medications Medication Instructions Recorded Confirmed metoprolol succinate 25 mg 25 mg PO DAILY 12/08/23 12/08/23 tablet,extended release 24 hr doxycycline hyclate 100 mg capsule 100 mg PO BID 02/06/24 02/06/24 Previous Rx's Medication Instructions Recorded hydroxyzine HCl 25 mg tablet 25 mg PO Q8H PRN panic attack(s) 05/21/24 #12 tabs Allergies Allergy/AdvReac Type Severity Reaction Status Date / Time No Known Allergies Allergy Verified 02/06/24 08:52 [facility] Disclaimer: The information contained in this section may have been updated after the patient was seen, as this information can be updated by other users. Medical History Abnormal electrocardiography Social History Smoking Status: Former smoker tobacco type: smokeless tobacco alcohol intake: never substance use type: denies use current occupational status: employed Travel in the last 8 weeks: [place] the [place] household members: spouse housing: house current occupational exposures/hazards: No caffeine: No ROS Obtained: Yes All systems reviewed & no additional complaints except as documented Physical Exam General General appearance: alert, in no apparent distress and anxious Head Head exam: atraumatic and normocephalic Eye Eye exam: Present normal appearance, PERRL and EOMI ENT ENT exam: Present normal exam, normal oropharynx, mucous membranes moist and normal external ear exam Neck Neck exam: Present normal inspection, full ROM and trachea midline; Absent tenderness Chest Chest inspection: Present normal inspection and symmetric chest wall rise; Absent tenderness Respiratory Respiratory exam: Present normal lung sounds bilaterally; Absent respiratory distress, wheezes, stridor or accessory muscle use Cardiovascular Cardiovascular exam: Present normal rhythm and tachycardia Abdominal Exam Abdominal exam: Present soft; Absent distention, tenderness or guarding Extremities Exam Extremities exam: Present normal inspection, full ROM and normal capillary refill; Absent tenderness or edema Back Exam Back exam: Present normal inspection and full ROM; Absent tenderness Neurological Exam Neurological exam: Present alert, oriented X3, CN II-XII intact and normal gait; Absent motor sensory deficit Psychiatric Psychiatric exam: Present anxious Skin Skin exam: Present warm and dry Medical Decision Making Medical Records Medical records reviewed: Yes I reviewed the patient's medical records. Walt Inquiry Pt receiving controlled substance: No Vital Signs: 05/21/24 03:43 05/21/24 03:50 05/21/24 04:00 Temperature 97.7 F Temperature Source Oral Pulse Rate 112 H 98 H Pulse Rate [Left] 113 H Respiratory Rate 18 12 Blood Pressure 141/95 H 136/89 Blood Pressure [Right Arm] 141/95 H Blood Pressure Mean [Right Arm] 110 02 Sat by Pulse Oximetry 99 100 Oxygen Delivery Method Room Air 05/21/24 04:18 05/21/24 04:30 Temperature Temperature Source Pulse Rate 97 H 86 Pulse Rate [Left] Respiratory Rate Blood Pressure 129/92 H 136/83 Blood Pressure [Right Arm] Blood Pressure Mean [Right Arm] 02 Sat by Pulse Oximetry 99 100 Oxygen Delivery Method Room Air Room Air Lab Data Lab results reviewed: Yes I reviewed the patient's lab results. Lab Results 05/21/24 03:50: WBC 7.3, RBC 4.98, Hgb 15.5, Hct 45.5, MCV 91.4, MCH 31.2, MCHC 34.1, RDW 12.9, Plt Count 264, MPV 7.5, Neut % (Auto) 51.3, Lymph % (Auto) 37.6, [place] % (Auto) 6.3, Eos % (Auto) 4.0, Baso % (Auto) 0.9, Neut # (Auto) 3.8, Lymph # (Auto) 2.8, [place] # (Auto) 0.5, Eos # (Auto) 0.3, Baso # (Auto) 0.1, D-Dimer 0.43, Sodium 142, Potassium 3.5, Chloride 105, Carbon Dioxide 30, Anion Gap 10.5, BUN 23 H, Creatinine 1.00, Estimated Creat Clear 132, Estimated GFR 85, Est GFR ( Amer) 103, Glucose 147 H, Calcium 9.3, Magnesium 2.0, Total Bilirubin 0.4, AST 30, ALT 20, Alkaline Phosphatase 48, Troponin I < 0.01, Total Protein 7.4, Albumin 4.5, Globulin 2.9, Albumin/Globulin Ratio 1.6, TSH 3.44, Thyroxine (T4) 8.7 05/21/24 03:50 05/21/24 03:50 Orders (Tests/Meds): ED MEDICATIONS Discontinued Medications Generic Name Dose Route Start Last Admin Trade Name Gavinq PRN Reason Stop Dose Admin Acetaminophen 1,000 mg 05/21/24 04:59 05/21/24 05:09 Acetaminophen 500mg Tab PO 05/21/24 05:00 1,000 mg ONCE ONE Administration Ketorolac Tromethamine 15 mg 05/21/24 04:59 05/21/24 05:08 Ketorolac 30mg/Ml Vial IV 05/21/24 05:00 15 mg ONCE ONE Administration Lidocaine 1 each 05/21/24 04:59 05/21/24 05:09 Lidocaine 5% Transdermal Patch TP 05/21/24 05:00 1 each ONCE ONE Administration ORDERS Category Date Time Status CXR 2 view (NOT portable) [XR chest 2V] Stat Exams 05/21/24 04:01 Taken CBC w/Auto Diff [Complete Blood Count Auto Diff] Stat Lab 05/21/24 03:50 Completed CMP [Comprehensive Metabolic Panel] Stat Lab 05/21/24 03:50 Completed D-Dimer Stat Lab 05/21/24 03:50 Completed MAG [Magnesium] Stat Lab 05/21/24 03:50 Completed T4 (Thyroxine) Stat Lab 05/21/24 03:50 Completed TSH [Thyroid Stimulating Hormone] Stat Lab 05/21/24 03:50 Completed Trop I [Troponin I] Stat Lab 05/21/24 03:50 Completed Troponin I Q3H Lab 05/21/24 07:00 Ordered Troponin I Q3H Lab 05/21/24 10:00 Ordered ECG Data Tracing #1: I reviewed this ECG and interpreted as documented below: Sinus tachycardia with a ventricular rate of [address] changes concerning for ischemia. Normal axis and intervals. ECG initial impression date: 05/21/24 ECG initial impression time: 03:55 HEART Score History (anamnesis): Slightly suspicious ECG: Normal Age: <45 years Risk factors: 1-2 risk factors Troponin: </= normal limit HEART Score: 1 Medical Decision Narrative: In summary, this patient is a 33-year-old male presenting to the Emergency Department for evaluation of palpitations and anxiety. On review of systems, he is also had nausea and right-sided pleuritic chest pain. Differential diagnoses considered include but are not limited to anxiety, panic attack, PE, ACS, dysrhythmia, hyperthyroidism, electrolyte derangements, viral syndrome. Ruling out the most morbid conditions drove assessment. It should be noted patient's history includes PAVAN and hypertension which may or may not be at goal therapy. This complicates all aspects of care by increasing patient's risk for morbidity. I reviewed patient's past medical records and noted previous evaluation for similar issues approximately 1 year ago with reassuring workup at that time. On exam, the patient is anxious appearing but is otherwise lying in bed in no acute distress. He is mildly tachycardic, but otherwise vitals are reassuring. Workup included CBC, CMP, magnesium, troponin, TSH, T4, D-dimer, chest x-ray, and EKG. For his musculoskeletal chest wall pain, he was given IV Toradol, oral Tylenol, and a topical Lidoderm patch. I independently interpreted x-ray prior to the radiologist read and noted obvious displaced rib fracture, no pneumothorax, and no focal consolidation. Please see their read for final interpretation. Labs were obtained that demonstrated negative D-dimer, normal CBC, normal CMP, negative troponin, normal thyroid studies. On reassessment, patient is resting comfortably and states that he is feeling better. He notes that he has calmed down a lot. Vitals are normal on cardiac telemetry with no tachycardia, hypoxia, or other concerns. Blood pressure is normal. At this time, patient is low risk for ACS with a heart score of 1 and no true chest pain. Given this as well as reassuring workup and exam, I feel that he is appropriate for discharge home with diagnosis of likely panic attack. He was given instructions for close follow-up with his primary care provider as well as prescription for hydroxyzine to take as needed for panic. Strict return precautions were given and he was discharged after all questions were answered. Critical Care Critical Care Time Critical Care Time: No
[2024-05-21 04:18] VITALS: BP 129/92; PULSE 97; O2SAT 99
[2024-05-21 04:30] VITALS: BP 136/83; PULSE 86; O2SAT 100
[2024-05-21 04:31] LABS: Basophils # 0.1 K/mm3 (0-0.2); Basophils % 0.9 % (0.1-2.0); Eosinophils # 0.3 K/mm3 (0.0-0.4); Hematocrit 45.5 % (42.0-52.0); Hemoglobin 15.5 g/dL (14.1-18.0); Lymphocytes # 2.8 K/mm3 (0.7-4.5); Lymphocytes % 37.6 % (10-50); Mean Corpuscular HGB Conc 34.1 g/dL (31.8-35.4); Mean Corpuscular Hemoglobin 31.2 pg (27.0-31.2); Mean Corpuscular Volume 91.4 fl (80-94); Mean Platelet Volume 7.5 fl (7.4-10.4); Monocytes # 0.5 K/mm3 (0.1-1.0); Monocytes % 6.3 % (1.7-9.3); Neutrophils # 3.8 K/mm3 (1.8-7.8); Neutrophils % 51.3 % (37.0-80.0); Platelet Count 264 K/mm3 (142-424); Red Blood Count 4.98 M/mm3 (4.60-6.20); Red Cell Distribution Width 12.9 % (11.5-17.5); White Blood Count 7.3 K/mm3 (4.8-10.8)
[2024-05-21 04:33] LABS: Alanine Aminotransferase 20 U/L (12-78); Albumin Level 4.5 g/dl (3.5-5.0); Albumin/Globulin Ratio 1.6 (1.1-1.8); Alkaline Phosphatase 48 U/L (38-126); Anion Gap 10.5 mEq/L (5-15); Aspartate Amino Transferase 30 U/L (17-59); Bilirubin,Total 0.4 mg/dl (0.2-1.3); Blood Urea Nitrogen 23 mg/dl (9-20); Calcium 9.3 mg/dl (8.4-10.2); Carbon Dioxide 30 mmol/L (22.0-30.0); Chloride 105 mmol/L (98-107); Creatinine Clearance Estimated 132 mL/min (50-200); Estimated Glomerular Filt Rate 85 ml/min (>60); GFR (African American) 103 ML/MIN (>60); Globulin 2.9 g/dL (1.3-3.2); Glucose 147 mg/dl (74-100); Potassium 3.5 mmoL/L (3.5-5.1); Sodium 142 mmol/L (136-145); Total Protein,Serum 7.4 g/dl (6.3-8.2)
[2024-05-21 04:37] LABS: D-Dimer 0.43 ug/mL (0.0-0.5)
[2024-05-21 04:51] LABS: T4 (Thyroxine) 8.7 ug/dl (5.53-11.0)
--- NOTE | 2024-05-21 04:55 | PC.NURSE ---
Dr. Brewer at bedside
[2024-05-21 05:04] LABS: Thyroid Stimulating Hormone 3.44 uIU/mL (0.465-4.68)
[2024-05-21] MEDS: KETOROLAC 30MG/ML VIAL 15 MG IV (05:08)
[2024-05-21] MEDS: ACETAMINOPHEN 500MG TAB 1000 MG PO (05:09)
[2024-05-21] MEDS: LIDOCAINE 5% TRANSDERMAL PATCH 1 EACH TP (05:09)
[2024-05-21 05:11] LABS: Troponin I < 0.01 ng/ml (0.00-0.034)
[2024-05-21 05:16] VITALS: BP 97/53; PULSE 79; RESP 13; TEMP 36.6; O2SAT 98
== END 2024-05-21 05:22 | disposition home or self-care (01) ==
PROVIDERS: Emergency Provider Emergency Medicine; PCP Internal Medicine Adolescent Medicine
DX: R00.2 Palpitations (principal); F41.9 Anxiety disorder, unspecified; R00.0 Tachycardia, unspecified; I10 Essential (primary) hypertension; G47.33 Obstructive sleep apnea (adult) (pediatric)
CPT/HCPCS: 71046; 80050; 80053; 83735; 84436; 84443; 84484; 85025; 85378; 93005; 96374; 99284; J1885

== ENCOUNTER 2024-10-23 15:01 | Outpatient (CLI) | payer BC, SELFPAY ==
[2024-10-23 18:08] LABS: Coronavirus 19, PCR Not Detected (NotDetected); Influenza A, PCR Not Detected (NotDetected); Influenza B, PCR Not Detected (NotDetected)
== END 2024-10-23 23:59 | disposition home or self-care (01) ==
LOC: LAB.DROPOF 10-26 11:42
PROVIDERS: PCP Family Medicine; Visit Provider Family Medicine
DX: J32.9 Chronic sinusitis, unspecified (principal); Z87.891 Personal history of nicotine dependence
CPT/HCPCS: 87636

== ENCOUNTER 2024-12-15 10:46 | Outpatient (CLI) | payer BC, SELFPAY ==
[2024-12-15 12:28] LABS: Basophils % 0.6 % (0.1-2.0); Eosinophils # 0.2 K/mm3 (0.0-0.4); Eosinophils % 2.5 % (0.1-12.0); Hematocrit 45.1 % (42.0-52.0); Hemoglobin 15.5 g/dL (14.1-18.0); Lymphocytes # 1.9 K/mm3 (0.7-4.5); Lymphocytes % 26.8 % (10-50); Mean Corpuscular HGB Conc 34.4 g/dL (31.8-35.4); Mean Corpuscular Volume 87.4 fl (80-94); Mean Platelet Volume 9.3 fl (7.4-10.4); Monocytes # 0.5 K/mm3 (0.1-1.0); Monocytes % 7.4 % (1.7-9.3); Neutrophils # 4.5 K/mm3 (1.8-7.8); Neutrophils % 62.1 % (37.0-80.0); Platelet Count 279 K/mm3 (142-424); Red Blood Count 5.16 M/mm3 (4.60-6.20); Red Cell Distribution Width 11.8 % (11.5-17.5); White Blood Count 7.2 K/mm3 (4.8-10.8)
[2024-12-15 12:35] LABS: Albumin Level 5.2 g/dl (3.5-5.0); Chloride 101 mmol/L (98-107); Sodium 139 mmol/L (136-145)
[2024-12-15 12:36] LABS: Potassium 4.3 mmoL/L (3.5-5.1)
[2024-12-15 12:38] LABS: Alanine Aminotransferase 26 U/L (12-78); Alkaline Phosphatase 54 U/L (38-126); Anion Gap 12.3 mEq/L (5-15); Aspartate Amino Transferase 30 U/L (17-59); Bilirubin,Indirect 0.7 mg/dL (0.0-0.9); Bilirubin,Total 0.7 mg/dl (0.2-1.3); Bilirubin,Unconjugated 0.7 mg/dL (0.0-1.1); Blood Urea Nitrogen 13 mg/dl (9-20); Carbon Dioxide 30 mmol/L (22.0-30.0); Cholesterol 192 mg/dl (140-200); Estimated Glomerular Filt Rate 128 ml/min (>60); GFR (African American) 154 ML/MIN (>60); Total Protein,Serum 8.1 g/dl (6.3-8.2); Triglycerides 82 mg/dl (30-150); VLDL Cholesterol 16 mg/dL (0-40)
[2024-12-15 12:39] LABS: Calcium 9.2 mg/dl (8.4-10.2); Chol/HDL Ratio 4.8 (1-3.5); Glucose 98 mg/dl (74-100); HDL Cholesterol 40 mg/dl (40-60)
[2024-12-15 12:51] LABS: Direct LDL Cholesterol 114.42 mg/dL (100-129)
[2024-12-15 13:09] LABS: Thyroid Stimulating Hormone 0.84 uIU/mL (0.465-4.68)
[2024-12-15 14:32] LABS: Free T4 (Free Thyroxine) 0.92 ng/dl (0.78-2.19)
== END 2024-12-15 23:59 | disposition home or self-care (01) ==
LOC: LAB 10:47
PROVIDERS: PCP Internal Medicine Adolescent Medicine; Visit Provider Nurse Practitioner Family
DX: R42 Dizziness and giddiness (principal); R07.89 Other chest pain; R00.2 Palpitations; I10 Essential (primary) hypertension
CPT/HCPCS: 36415; 80048; 80061; 80076; 83735; 84439; 84443; 85025; 93270

== ENCOUNTER 2024-12-22 14:14 | Outpatient (CLI) | payer BC, SELFPAY ==
--- NOTE | 2024-12-22 14:17 | CA_ITS ---
APPROVED REPORT EXAM: Comprehensive 2D, Doppler, and color-flow Echocardiogram Skein Winding Operator: Joaquina Rosa RVT Ht: 6 ft 1 in Wt: 198lbs BSA: 2.14 BP: 122/69 mmHg Indications: CHEST PAIN,PALPITATIONS,FATIGUE 2D Dimensions LA Volume 34.80 mL LA Volume Index 16.26 mL/m2 (M/F) 16-34 M-Mode Dimensions RVDd 2.14 cm (0.9-2.6) LA Diam 3.36 cm (1.9-4.0) LVDd 4.64 cm (3.5-5.7) LVDs 3.00 cm (3.5-5.7) IVSd 0.80 cm (0.6-1.1) PWd 0.52 cm (0.6-1.1) EF (Teich) 64.80% FS 35.30% EDV (Teich) 99.30 mL TAPSE 2.69 (<1.7) ESV (Teich) 35.00 mL LV Diastology E Decel Time 193 (160-240 msec) E/A Ratio 1.1 Aortic Valve KIM Index 1.27 cm2/m2 AoV Peak Camacho. 116.0 (50-130 cm/s) AO Peak GR. 5.40 mmHg AO Mean GR. 3.30 (<5 mmHg) AO VTI 22.3 (18-25 cm) KIM (VTI) 2.78 (2.5-4.5 cm2) Mitral Valve MV E Max Camacho. 95.0 (40-130 cm/s) MV A Velocity 83.0 (40-130 cm/s) E/A Ratio 1.14 MV PHT 57.0 ms Pulmonary Valve PV Peak Velocity 99.0 (50-150 cm/s) Tricuspid Valve TR P. Velocity 175.00 cm/s RAP Estimate 10.00 mmHg RVSP 22.30 mmHg Left Ventricle The left ventricle is normal size. The left ventricular systolic function is normal. The left ventricular ejection fraction is within the normal range. There is normal left ventricular wall thickness. There is normal LV segmental wall motion. The left ventricular diastolic function is normal. LVEF is 55%. Right Ventricle The right ventricle is normal size. The right ventricular systolic function is normal. Atria The left atrium size is normal. The right atrium size is normal. There is no Doppler evidence of interatrial shunt. Aortic Valve The aortic valve opens well. There is no aortic valvular stenosis. No aortic regurgitation is present. Mitral Valve The mitral valve is normal in structure. No evidence of mitral valve stenosis. No Mitral Regurgitation. Tricuspid Valve Tricuspid valve is grossly normal in structure and function. Trace tricuspid regurgitation. There is insufficient TR jet to estimate RVSP. Pulmonic Valve The pulmonary valve is normal in structure. Trace pulmonic regurgitation. Great Vessels The aortic root is normal in size. The ascending aorta is not well-visualized. IVC is normal in size and collapses >50% with inspiration. Pericardium There is no pericardial effusion. Other Information Study Quality: Adequate Conclusion Normal biventricular systolic function. No significant valvular stenosis or regurgitation. Electronically signed by : Liane Osborn MD 12/31/2024 13:25:29
== END 2024-12-22 23:59 | disposition home or self-care (01) ==
LOC: RT 14:14
PROVIDERS: PCP Internal Medicine Adolescent Medicine; Visit Provider Nurse Practitioner Family
DX: R42 Dizziness and giddiness (principal); R07.89 Other chest pain; R00.2 Palpitations
CPT/HCPCS: 93306

== ENCOUNTER 2025-01-06 11:01 | Outpatient (CLI) | payer BC, SELFPAY ==
[2025-01-06 16:20] LABS: Coronavirus 19, PCR Not Detected (NotDetected); Human Rhinovirus Not Detected (NotDetected); Influenza A, PCR Not Detected (NotDetected); Influenza B, PCR Not Detected (NotDetected); Respiratory Syncytial Virus Not Detected (NotDetected)
== END 2025-01-06 23:59 | disposition home or self-care (01) ==
LOC: LAB.DROPOF 01-07 16:15
PROVIDERS: PCP Nurse Practitioner; Visit Provider Nurse Practitioner
DX: B34.9 Viral infection, unspecified (principal)
CPT/HCPCS: 87631

== ENCOUNTER 2025-04-01 15:33 | Outpatient (CLI) | payer BC, SELFPAY ==
[2025-04-03 00:05] LABS: Chlamydia trachomatis Negative (Negative); Neisseria gonorrhoeae Negative (Negative); Trichomonas vaginalis Negative (Negative)
== END 2025-04-01 23:59 | disposition home or self-care (01) ==
LOC: LAB.DROPOF 15:33
PROVIDERS: PCP Internal Medicine Adolescent Medicine; Visit Provider Physician Assistant
DX: N50.811 Right testicular pain (principal); N50.812 Left testicular pain; R10.30 Lower abdominal pain, unspecified; R10.9 Unspecified abdominal pain
CPT/HCPCS: 87086; 87088; 87186; 87491; 87591; 87661